=== PATIENT | male | born 1980 | race Caucasian/White ===

== ENCOUNTER 2020-06-28 23:21 | Emergency (ER) | payer MEDICAID ==
[~2020-06-28] VITALS: Ht 185.4 cm; Wt 92.0 kg
[~2020-06-28 23:21] MED LIST: ASPI-515 PO
[2020-06-28 23:26] VITALS: BP 133/92
--- NOTE | 2020-06-28 23:52 | NUR ---
IRONER MACHINE: PT WALKED BACK FROM LOBBY TO ROOM AT THIS TIME.
--- NOTE | 2020-06-29 00:16 | NUR ---
Patient given discharge instructions and they have confirmed that they understand the instructions. Patient ambulatory with steady gait.
== END 2020-06-29 00:18 | disposition home or self-care (01) ==
LOC: ED 06-29 00:10
DX: R51.9 Headache, unspecified (principal); R11.0 Nausea; R20.2 Paresthesia of skin; Z90.49 Acquired absence of other specified parts of digestive tract; Z86.718 Personal history of other venous thrombosis and embolism
CPT/HCPCS: 99281